=== PATIENT | female | born 1935 | race Caucasian/White ===

== ENCOUNTER 2020-10-14 08:34 | Outpatient (CLI) | payer MEDICARE, SELFPAY ==
--- NOTE | ~2020-10-14 | MM_ITS ---
EXAMINATION: MM screening sidra BI w nancy HISTORY: Screening TECHNIQUE: Craniocaudal and mediolateral oblique 3-D tomosynthesis images were obtained and synthetic 2-D images were generated. CAD analysis was submitted and interpreted. COMPARISON: Comparison to multiple prior studies sequentially, with oldest reviewed study dated 07/31. BREAST PARENCHYMAL COMPOSITION: There are scattered areas of fibroglandular density. FINDINGS: There is no evidence of suspicious mass, calcification, or architectural distortion to sugg est malignancy in either breast. There has been no suspicious interval change. IMPRESSION: 1. No mammographic evidence of malignancy. 2. Recommend routine screening mammography in one year. BI-RADS Category 1: Negative Reviewed, dictated and finalized at location A. ICAL SUPPORT
--- NOTE | ~2020-10-14 | DEXA_ITS ---
Bone Density Report Name: April Sharma Age: 84 Sex: Female Ethnicity: White Date of : 1935 Indication: postmenopausal osteoporosis; height loss; prior fracture; Referring Provider: Kev Hayes Study: Bone densitometry was performed. Exam Date: October 14, 2020 Accession number: [id number] Bone Density: Region BMD T-score Z-score Classification AP Spine (L1-L4) 0.802 -2.2 0.6 Osteopenia Femoral Neck (Left) 0.525 -2.9 -0.4 Osteoporosis Total Hip (Left) 0.561 -3.1 -0.8 Osteoporosis Total Hip Bilateral Avg 0.569 -3.0 -0.8 Osteoporosis Femoral Neck (Right) 0.499 -3.2 -0.6 Osteoporosis Total Hip (Right) 0.576 -3.0 -0.7 Osteoporosis World Health Organization criteria for BMD impression classify patients as: Normal (T-score at or above -1.0), Osteopenia (T-score between -1.0 and -2.5), or Osteoporosis (T-score at or below -2.5). 10-year Fracture Risk: FRAX not reported because: Some T-score for Spine Total or Hip Total or Femoral Neck at or below -2.5 Previous Exams: Region Exam Age BMD T-score BMD Change BMD Change Date g/cm2 vs Baseline vs Previous AP Spine(L1-L4) 10/14/2020 84 0.802 -2.2 0.119(17.4%)# 0.030(3.9%)# 09/01/2014 78 0.772 -2.5 0.089(13.0%)# 0.023(3.0%)# 07/14/2012 76 0.750 -2.7 0.066(9.7%)# 0.015(2.1%)# 06/21/2008 72 0.735 -2.8 0.051(7.5%)* 0.051(7.5%)* 06/12/2006 70 0.683 -3.3 Total Hip(Left) 10/14/2020 84 0.561 -3.1 -0.113(-16.8%) -0.168(-23.0%) 09/01/2014 78 0.729 -1.7 0.054(8.0%)# 0.085(13.2%)# 07/14/2012 76 0.644 -2.4 -0.031(-4.6%)# 0.001(0.1%)# 07/05/2010 74 0.643 -2.5 -0.032(-4.7%)* -0.039(-5.7%)* 06/21/2008 72 0.682 -2.1 0.007(1.1%) 0.007(1.1%) 06/12/2006 70 0.674 -2.2 Total Hip(Right) 10/14/2020 84 0.576 -3.0 -0.064(-10.0%) -0.128(-18.2%) 09/01/2014 78 0.704 -2.0 0.064(10.0%)# 0.017(2.5%)# 07/14/2012 76 0.686 -2.1 0.047(7.3%)# 0.072(11.6%)# 07/05/2010 74 0.615 -2.7 -0.025(-3.9%) -0.055(-8.2%)* 06/21/2008 72 0.670 -2.2 0.030(4.7%)* 0.030(4.7%)* 06/12/2006 70 0.640 -2.5 *Denotes significance at 95% confidence level, LSC for AP Spine = 0.022 g/cm2, LSC for Total Hip = 0.027 g/cm2 Clinical Information Provided by Patient: Has had a low trauma fracture Has used the following medications: Vitamin D, Calcium Patient maximum height was 62 Menopause Age: 50 No regular weight bearing exercise Onset of menses at age 14 Number of children 2 --------
== END 2020-10-14 08:35 | disposition home or self-care (01) ==
LOC: ANHIMG 08:38
PROVIDERS: PCP Internal Medicine; Visit Provider Internal Medicine
DX: Z12.31 Encounter for screening mammogram for malignant neoplasm of breast (principal); Z78.0 Asymptomatic menopausal state
CPT/HCPCS: 77063; 77067; 77080

== ENCOUNTER 2021-11-15 12:41 | Outpatient (CLI) | payer MEDICARE, SELFPAY ==
--- NOTE | ~2021-11-15 | MM_ITS ---
EXAMINATION: MM screening sidra BI w nancy HISTORY: Screening TECHNIQUE: Craniocaudal and mediolateral oblique 3-D tomosynthesis images were obtained and synthetic 2-D images were generated. CAD analysis was submitted and interpreted. COMPARISON: Comparison to multiple prior studies sequentially, with oldest reviewed study dated 11/2013. BREAST PARENCHYMAL COMPOSITION: There are scattered areas of fibroglandular density. FINDINGS: There are asymmetries in the central aspect of the right breast. The left breast is stable without evidence for malignancy. IMPRESSION: 1. Developing right breast asymmetries. 2. Additional mammographic views and possible breast ultrasound are recommended. BI-RADS Category 0: Incomplete: Needs additional imaging evaluation. Reviewed, dictated and finalized at location A. [employer] IMPRESSION: 1. Developing right breast asymmetries. 2. Additional mammographic views and possible breast ultrasound are recommended . BI-RADS Category 0: Incomplete: Needs additional imaging evaluation.
== END 2021-11-15 12:42 | disposition home or self-care (01) ==
LOC: ANHIMG 12:43
PROVIDERS: PCP Internal Medicine; Visit Provider Internal Medicine
DX: Z12.31 Encounter for screening mammogram for malignant neoplasm of breast (principal); R92.8 Other abnormal and inconclusive findings on diagnostic imaging of breast
CPT/HCPCS: 77063; 77067

== ENCOUNTER 2022-01-05 12:01 | Outpatient (CLI) | payer MEDICARE, SELFPAY ==
--- NOTE | ~2022-01-05 | MMUS_ITS ---
EXAMINATION: MM diagnostic sidra RT w nancy, US breast RT limited HISTORY: Follow-up right breast asymmetry TECHNIQUE: Additional 3-D tomosynthesis images of the right breast were performed and synthetic 2-D i mages were generated. CAD analysis was submitted and interpreted. High resolution Limited right breas t ultrasound was performed. COMPARISON: 11/15/2021 BREAST PARENCHYMAL COMPOSITION: Breast composed of scattered areas of fibroglandular density FINDINGS: MAMMOGRAPHIC FINDINGS: There is a subtle radiolucent mass in the superior aspect of the right breast on mediolateral view. N o suspicious calcifications or architectural distortion. ULTRASOUND: Limited right breast ultrasound: At 10:00, 2 cm from the nipple, there is a hypoechoic structure with parallel orientation measuring 8 x 7 x 2 mm, likely a cluster of microcysts. This likely corresponds to the mammographic finding. IMPRESSION: 1. Probable benign cluster of microcysts in the right breast at 10:00, 2 cm from the nipple. 2. Recommend 6 month follow-up diagnostic right mammogram and ultrasound BI-RADS category 3, probably benign findings. Reviewed, dictated and finalized at location A. IMPRESSION: 1. Probable benign cluster of microcysts in the right breast at 10:00, 2 cm fro m the nipple. 2. Recommend 6 month follow-up diagnostic right mammogram and ultrasound BI-RADS category 3, probably benign findings.
== END 2022-01-05 12:02 | disposition home or self-care (01) ==
PROVIDERS: PCP Internal Medicine; Visit Provider Internal Medicine
DX: N60.01 Solitary cyst of right breast (principal)
CPT/HCPCS: 76642; 77061; 77065; G0279

== ENCOUNTER 2022-12-10 13:13 | Outpatient (CLI) | payer MEDICARE, SELFPAY ==
--- NOTE | ~2022-12-10 | MM_ITS ---
EXAMINATION: MM diagnostic sidra BI w nancy HISTORY: Six-month follow-up of probable benign cluster of microcysts in the right breast at 10:00 2 cm from nipple TECHNIQUE: Full field and spot ML, MLO and CC 3-D tomosynthesis images of both breasts were performed and synthetic 2-D images were generated. CAD analysis was submitted and interpreted. High resolution bilateral upper outer and lower-outer quadrant breast ultrasound was performed. COMPARISON: 01/05/2022 diagnostic right mammogram and limited right breast ultrasound , 10/14/2020, 12/11/2018, 11/20/2017 bilateral screening mammogram examinations BREAST PARENCHYMAL COMPOSITION: There are scattered areas of fibroglandular density. FINDINGS: MAMMOGRAPHIC FINDINGS: There is asymmetry in the upper outer left breast on full-field ML and MLO views. It appears to compr ess out on the cone compression ML and MLO views. Ultrasound imaging was performed. Otherwise no suspicious mass, architectural distortion, microcalcifications, skin thickening or retra ction of either breast or significant new or developing density is detected. ULTRASOUND: No suspicious mass or shadowing, cyst or other sylvian sonographic finding is noted in the outer half of either breast. IMPRESSION: 1. Probably benign mild fibroglandular asymmetry in the upper outer left breast 2. 6 month follow-up diagnostic left mammogram and left breast ultrasound is recommended BI-RADS category 3, probably benign findings. Reviewed, dictated and finalized at location A. IMPRESSION: 1. Probably benign mild fibroglandular asymmetry in the upper outer left breast 2. 6 month follow-up diagnostic left mammogram and left breast ultrasound is re commended BI-RADS category 3, probably benign findings.
--- NOTE | ~2022-12-10 | US_ITS ---
US breast BI limited DATE: 12/10/2022 14:55 INDICATION: Follow-up right ultrasound from 01/05/2022; left breast ultrasound for mammographic asymmet ry TECHNIQUE: Real-time imaging of the upper outer and lower-outer quadrants of each breast COMPARISON: 01/15/2022 diagnostic right mammogram and limited right breast ultrasound 12/10/2022 bilateral diagnostic mammography FINDINGS: . Right breast: No suspicious mass or shadowing, cyst or other significant abnormality is noted in the upper outer or lower outer quadrants of the right breast. Left breast: No discrete mass or focal shadowing is identified in the upper outer or lower outer quad rants of the left breast. IMPRESSION: BI-RADS Category 3: Probably benign Recommendation: Diagnostic left mammogram and left breast ultrasound follow-up in 6 months Reviewed, dictated and finalized at Location A. Reviewed, dictated and finalized at location A.
== END 2022-12-10 13:14 | disposition home or self-care (01) ==
LOC: ANHIMG 13:16
PROVIDERS: PCP Internal Medicine; Visit Provider Internal Medicine
DX: R92.8 Other abnormal and inconclusive findings on diagnostic imaging of breast (principal)
CPT/HCPCS: 76642; 77062; 77066; G0279

== ENCOUNTER 2023-01-07 13:23 | Outpatient (CLI) | payer MEDICARE, SELFPAY ==
--- NOTE | ~2023-01-07 | DEXA_ITS ---
Bone Density Report Name: DORITA BARRERA Age: 87 Sex: Female Ethnicity: White Date of : 1935 Indication: postmenopausal osteoporosis; height loss; prior fracture; Referring Provider: LORRI PRECIADO Study: Bone densitometry was performed. Exam Date: January 07, 2023 Accession number: [id number] Bone Density: Region BMD T-score Z-score Classification AP Spine(L1-L4) 0.877 -1.5 1.3 Osteopenia Femoral Neck (Left) 0.565 -2.6 0.0 Osteoporosis Total Hip (Left) 0.608 -2.7 -0.4 Osteoporosis Femoral Neck (Right) 0.553 -2.7 -0.1 Osteoporosis Total Hip (Right) 0.630 -2.6 -0.2 Osteoporosis Total Hip Mean 0.619 -2.7 -0.3 Osteoporosis World Health Organization criteria for BMD impression classify patients as: Normal (T-score at or above -1.0), Osteopenia (T-score between -1.0 and -2.5), or Osteoporosis (T-score at or below -2.5). 10-year Fracture Risk: FRAX not reported because: Some T-score for Spine Total or Hip Total or Femoral Neck at or below -2.5 Previous Exams: Region Exam Age BMD T-score BMD Change BMD Change Date g/cm2 vs Baseline vs Previous AP Spine (L1-L4) 01/07/2023 87 0.877 -1.5 0.074 (9.3%)# 0.074 (9.3%)# 10/14/2020 84 0.802 -2.2 Total Hip(Left) 01/07/2023 87 0.608 -2.7 0.047 (8.3%)# 0.047 (8.3%)# 10/14/2020 84 0.561 -3.1 Total Hip(Right) 01/07/2023 87 0.630 -2.6 0.054 (9.5%)# 0.054 (9.5%)# 10/14/2020 84 0.576 -3.0 *Denotes significance at 95% confidence level, LSC for AP Spine = 0.022 g/cm2, LSC for Total Hip = 0.027 g/cm2 # Denotes dissimilar scan types or analysis methods Clinical Information Provided by Patient: Has had a low trauma fracture Has used the following medications: Protelos (i.e. strontium ranelate), Vitamin D, Calcium Patient maximum height was 62 Menopause Age: 50 No regular weight bearing exercise Onset of menses at age 13 Number of children 2 Impression: The patient has established osteoporosis, based on the Left Total Hip T-score and the existence of a prior fracture. The patient has risk factors, including: previous fracture. No significant bone loss was observed. Discussion: HIGH RISK OF FRACTURE. BONE DENSITY IS UNDESIRABLY LOW AT ONE OR MORE SKELETAL SITES, CONSISTENT WITH POSTMENOPAUSAL OSTEOPOROSIS. This patient's lowest T-score, in a patient who has previously fractured, meets the World Health Organization's (WHO) criteria for severe osteoporosis. In untreated pat
== END 2023-01-07 13:24 | disposition home or self-care (01) ==
LOC: ANHIMG 13:24
PROVIDERS: PCP Internal Medicine; Visit Provider Internal Medicine
DX: Z78.0 Asymptomatic menopausal state (principal); M85.88 Other specified disorders of bone density and structure, other site; M81.0 Age-related osteoporosis without current pathological fracture
CPT/HCPCS: 77080

== ENCOUNTER 2023-06-25 12:14 | Outpatient (CLI) | payer MEDICARE, SELFPAY ==
--- NOTE | ~2023-06-25 | MMUS_ITS ---
EXAMINATION: MM diagnostic sidra LT w nancy, US breast LT limited HISTORY: Six-month follow-up of probably benign mild fibroglandular asymmetry in upper outer left curtis ast TECHNIQUE: Full field and spot ML, MLO and CC 3-D tomosynthesis images of the left breast were perfor med and synthetic 2-D images were generated. CAD analysis was submitted and interpreted. High resolut ion upper outer and lower-outer quadrant left breast ultrasound was performed. COMPARISON: 12/10/2022 diagnostic bilateral mammogram and limited bilateral breast ultrasound bilateral screening mammogram BREAST PARENCHYMAL COMPOSITION: There are scattered areas of fibroglandular density. FINDINGS: MAMMOGRAPHIC FINDINGS: No suspicious mass or architectural distortion, malignant calcification, skin thickening or retractio n or significant new or developing density is detected. ULTRASOUND: No suspicious mass or shadowing is detected in the upper outer or lower outer quadrants of the left b reast IMPRESSION: 1. No evidence of malignancy 2. Routine annual mammographic screening is recommended BI-RADS Category 1: Negative Reviewed, dictated and finalized at location A. IMPRESSION: 1. No evidence of malignancy 2. Routine annual mammographic screening is recommended BI-RADS Category 1: Negative
== END 2023-06-25 12:15 | disposition home or self-care (01) ==
PROVIDERS: PCP Internal Medicine; Visit Provider Internal Medicine
DX: R92.8 Other abnormal and inconclusive findings on diagnostic imaging of breast (principal)
CPT/HCPCS: 76642; 77061; 77065; G0279

== ENCOUNTER 2024-09-03 15:34 | Emergency (ER) | payer MEDICARE, SELFPAY ==
--- NOTE | ~2024-09-03 | CT_ITS ---
EXAMINATION: CT cervical spine wo con DATE: 09/03/2024 17:11 INDICATION: Neck pain. Fall. Head injury. TECHNIQUE: Computed tomography (CT) of the cervical spine was performed without intravenous contrast. Automated exposure control and iterative reconstruction technique were employed. The dose-length pro duct was 101.90 mGy-cm. COMPARISON: None FINDINGS: There is mild scarring at the lung apices. There is 8 degrees levocurvature of cervical spi ne. There is 3 mm anterolisthesis of C5 on C6. Vertebral body heights are normal. There is mildly dec reased disc height at C3-C4, C5-C6, and C6-C7. The following disc levels are specifically discussed: C2-C3: There is no uncovertebral joint osteoarthritis. There is severe bilateral facet joint osteoart hritis. There is no neural foraminal stenosis. There is no central canal stenosis. C3-C4: There is severe bilateral uncovertebral joint osteoarthritis. There is severe bilateral facet joint osteoarthritis. There is mild bilateral neural foraminal stenosis. There is mild central canal stenosis. C4-C5: There is no uncovertebral joint osteoarthritis. There is severe bilateral facet joint osteoart hritis. There is mild right neural foraminal stenosis. There is no central canal stenosis. C5-C6: There is no uncovertebral joint osteoarthritis. There is severe bilateral facet joint osteoart hritis. There is mild left neural foraminal stenosis. There is no central canal stenosis. C6-C7: There is mild left uncovertebral joint osteoarthritis. There is severe bilateral facet joint o steoarthritis. There is mild right neural foraminal stenosis. There is no central canal stenosis. C7-T1: There is no uncovertebral joint osteoarthritis. There is severe right and moderate left facet joint osteoarthritis. There is mild right neural foraminal stenosis. There is no central canal stenos is. IMPRESSION: 1. No fracture 2. Mild cervical spondylosis. Reviewed, dictated and finalized at location A. EXAMINER
--- NOTE | ~2024-09-03 | CT_ITS ---
EXAMINATION: CT brain wo con DATE: 09/03/2024 17:12 INDICATION: Head injury. TECHNIQUE: Computed tomography (CT) of the head was performed without intravenous contrast. The mA wa s adjusted according to patient size. Iterative reconstruction technique was employed. The dose-lengt h product was 605.33 mGy-cm. COMPARISON: None FINDINGS: There is a small old infarct in right cerebellum. There are scattered areas of low attenuat ion in the cerebral white matter. There are old infarcts in the bilateral basal ganglia. There is no intracranial hemorrhage, acute infarction, or abnormal intracranial mass lesion. The ventricles are n ormal in size. The orbits are normal. There is mild mucosal thickening in the paranasal sinuses. The mastoid air cells are normal. There is left posterior scalp soft tissue swelling. IMPRESSION: 1. 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 2. Moderate nonspecific cerebral white matter disease, which likely represents chronic small vessel i schemic disease. Reviewed, dictated and finalized at location A. BER OPERATOR IMPRESSION: 1. 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 2. Moderate nonspecific cerebral white matter disease, which likely represents chronic small vessel ischemic disease.
[2024-09-03 16:24] VITALS: BP 138/70; PULSE 76; RESP 18; TEMP 36.5; O2SAT 96
--- NOTE | 2024-09-03 16:31 | ED.FALL ---
HPI - Fall General Chief Complaint: Fall Stated Complaint: mechanical fall, hit head, no LOC Time Seen by Provider: 09/03/24 16:31 Source: patient Mode of arrival: wheelchair Limitations: no limitations History of Present Illness HPI Narrative: Patient is an 88-year-old female who presents the ED with report of fall. Patient reports she tripped over a curb at [employer] and fell backwards, hitting her head on the ground. She did sustain a contusion to her posterior scalp. Denied LOC. Does remember the fall. Also complains of pain to her posterior neck. Denies pain to her extremities, chest pain, abdominal pain, dizziness, lightheadedness, vision changes. Patient is not on any anticoagulation. Related Data Home Medications Medication Instructions Recorded Confirmed alprazolam 0.25 mg tablet 0.25 mg PO QHS PRN 02/26/24 aspirin 81 mg capsule 81 mg PO DAILY 02/26/24 atorvastatin 10 mg tablet 10 mg PO DAILY 02/26/24 citalopram 20 mg tablet 20 mg PO DAILY 02/26/24 hydrochlorothiazide 12.5 mg capsule 12.5 mg PO DAILY 02/26/24 lisinopril 10 mg tablet 10 mg PO DAILY 02/26/24 omeprazole 20 mg capsule,delayed 20 mg PO DAILY 02/26/24 release verapamil 240 mg 24 hr 240 mg PO DAILY 02/26/24 capsule,extended release Allergies Allergy/AdvReac Type Severity Reaction Status Date / Time codeine Allergy Unknown Unknown Verified 03/18/24 08:38 Review of Systems Review of Systems: All systems reviewed & are unremarkable except as noted in HPI. All systems reviewed & are unremarkable except as noted in HPI and below [facility] Past Medical History Medical History Heart disease Hypertension Surgical History Surgical History Hx of tonsillectomy Family History Family History Sibling Cancer Social History Social History Smoking status: Never smoker Alcohol intake: current Alcohol use details: occasional glass of wine Substance use type: does not use Do You Feel Safe in your Home?: Yes Lack of Transportation: No Lack of Food: Never True Current Housing: I Have Housing Concerned About Future Housing: No Difficulty Paying Gas/Electric Bills: No Difficulty Paying for Meds: No Currently Unemployed: No Education: High School Diploma/GED Difficulty w/ Childcare or Family Care: Decline to Answer Living arrangements: with family Occupation/Education: retired Exam Narrative: GENERAL: Elderly, frail, and in no acute distress. HEAD: Normocephalic. Small contusion to posterior scalp with focal TTP. No wounds. CHEST: Clear to auscultation. ?No respiratory distress. HEART: Regular rate and rhythm.? MSK: No gross deformities. Moves all extremities equally. NEURO: ?Alert and oriented x3. No focal deficits. Course Vital Signs Vital signs: Vital Signs Temperature 97.7 F 09/03/24 16:24 Pulse Rate 76 09/03/24 16:24 Respiratory Rate 18 09/03/24 16:24 Blood Pressure 138/70 09/03/24 16:24 Pulse Oximetry 96 09/03/24 16:24 Oxygen Delivery Room Air 09/03/24 16:24 Temperature 97.7 F 09/03/24 16:24 Pulse Rate 76 09/03/24 16:24 Respiratory Rate 18 09/03/24 16:24 Blood Pressure 138/70 09/03/24 16:24 Pulse Oximetry 96 09/03/24 16:24 Oxygen Delivery Room Air 09/03/24 16:24 MDM - Fall MDM Narrative Medical decision making narrative: MSE by IVETH in triage. Care resumed by myself. Patient presented to ED status post ground level mechanical fall with head injury. Neurovascularly intact. Vital signs are stable. Patient in no acute distress. CT brain and cervical spine negative for traumatic findings. Patient denies any other concerns or areas of pain. Will be discharged. Recommended to follow-up with primary care doctor for further evaluation if needed. Given strict return precautions. She agrees with plan. Discharged in stable condition. Medical Records Attestation: I reviewed the patient's medical records. Imaging Data Attestation: I personally reviewed and interpreted this imaging study as follows: Radiologist's impression: ITS Impressions Cervical Spine CT 09/03/24 17:12 IMPRESSION: 1. No fracture 2. Mild cervical spondylosis. Head CT 09/03/24 17:16 IMPRESSION: 1. 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 2. Moderate nonspecific cerebral white matter disease, which likely represents chronic small vessel ischemic disease. Discharge Plan Discharge Clinical Impression: Fall from ground level Closed head injury Qualifiers: Encounter type: initial encounter Qualified Code(s): S09.90XA - Unspecified injury of head, initial encounter Patient Disposition: Home, Self-Care Condition: Stable Instructions: Antibiotic Form, Head Injury (ED), Scalp Contusion in Adults (ED) Additional Instructions: Your imaging did not show any evidence of traumatic findings. Recommend rest, ice to areas of pain, Tylenol as needed for pain. Follow-up with your primary care doctor for further evaluation if needed. Return to ED if you experience recurrent falls or injuries, recurrent head injury, severe pain or headache, severe dizziness, passing out, unable to keep down food or drink, vision changes, or any other symptoms of concern. Prescriptions: No Action hydrochlorothiazide 12.5 mg capsule 12.5 mg PO DAILY lisinopril 10 mg tablet 10 mg PO DAILY verapamil 240 mg capsule,ext rel. pellets 24 hr 240 mg PO DAILY atorvastatin 10 mg tablet 10 mg PO DAILY aspirin 81 mg capsule 81 mg PO DAILY citalopram 20 mg tablet 20 mg PO DAILY omeprazole 20 mg capsule,delayed release(DR/EC) 20 mg PO DAILY alprazolam 0.25 mg tablet 0.25 mg PO QHS PRN Follow-up/Referrals: Vimal,MD Kev [Primary Care Provider] - Time of Disposition: 17:43
[2024-09-03 18:02] VITALS: BP 169/90; PULSE 72; RESP 16; TEMP 36.4; O2SAT 97
== END 2024-09-03 18:19 | disposition home or self-care (01) ==
PROVIDERS: Emergency Provider Physician Assistant; PCP Internal Medicine
DX: S09.90XA Unspecified injury of head, initial encounter (principal); W18.09XA Striking against other object with subsequent fall, initial encounter; I10 Essential (primary) hypertension
CPT/HCPCS: 70450; 72125; 99284